=== PATIENT | female | born 1980 | race Caucasian/White ===

== ENCOUNTER 2018-09-18 16:13 | Emergency (ER) | payer OTHER ==
[~2018-09-18] VITALS: Ht 152.4 cm; Wt 48.5 kg
== END 2018-09-18 20:47 | disposition home or self-care (01) ==
LOC: ER 16:13 → EDBD 16:17 → ER 20:47
DX: R51 Headache (principal)

== ENCOUNTER 2021-03-17 10:42 | Emergency (ER) | payer OTHER ==
[~2021-03-17] VITALS: Ht 152.4 cm; Wt 49.9 kg
[2021-03-18] MEDS ORDERED: MECLIZINE HCL25 MG PO (15:27)
== END 2021-03-17 12:17 | disposition home or self-care (01) ==
LOC: ER 10:42
DX: E16.1 Other hypoglycemia (principal); R42 Dizziness and giddiness

== ENCOUNTER 2021-03-18 10:42 | Emergency (ER) | payer OTHER ==
[~2021-03-18] VITALS: Ht 152.4 cm; Wt 49.9 kg
[2021-03-18] MEDS ORDERED: MECLIZINE HCL25 MG PO (15:27)
== END 2021-03-18 15:48 | disposition home or self-care (01) ==
LOC: ER 10:42
DX: R42 Dizziness and giddiness (principal)

== ENCOUNTER 2021-09-24 18:15 | Emergency (ER) | payer OTHER ==
[~2021-09-24] VITALS: Ht 152.4 cm; Wt 49.9 kg
[~2021-09-24 18:15] MED LIST: MECLIZINE HCL25 MG PO
== END 2021-09-25 | disposition home or self-care (01) ==
LOC: ER 18:15
DX: R42 Dizziness and giddiness (principal)